=== PATIENT | female | born 1970 | race Caucasian/White ===

== ENCOUNTER → 2018-02-09 | Outpatient (CLI) | payer OTHER ==
[~2018-02-09] MED LIST: ADVAIR 250-501 EACH INH; ADVAIR 500-501 EACH INH; CYMBALTA60 MG PO; ENDOCET 5-3251 EACH PO; MOBIC7.5 MG PO; MULTI VITAMIN1 EACH PO; OXYCONTIN10 M1 PO; TRAMADOL 50 MG50 MG PO; TRILEPTAL 300300 MG PO; ULTRAM 50MG TAB50 MG; VENTOLIN HFA INH8 GM IH
== END ==
LOC: RAD 10:09
DX: M43.26 Fusion of spine, lumbar region (principal); M47.814 Spondylosis without myelopathy or radiculopathy, thoracic region; M96.1 Postlaminectomy syndrome, not elsewhere classified